=== PATIENT | male | born 1990 | race Caucasian/White ===

== ENCOUNTER 2020-03-07 03:10 | Emergency (ER) | payer SELFPAY ==
[2020-03-07 03:12] VITALS: BP 112/70; PULSE 72; RESP 16; TEMP 36.3; O2SAT 97; BMI 26.6
--- NOTE | 2020-03-07 04:17 | ED.EAR ---
HPI - Ear Problem General Chief complaint: Ear Problems Stated complaint: ear pain Time Seen by Provider: 03/07/20 04:16 Source: patient Mode of arrival: ambulatory Limitations: no limitations History of Present Illness HPI Narrative: 29-year-old male who presents to the emergency department for evaluation of right ear pain. Patient states that he has had right ear pain for 1 week. He states the pain is a constant, pounding sensation which is moderate to severe in intensity. The pain does wax and wane. The patient denies any change in his hearing. He denied fever, chills, rhinorrhea, sore throat, cough, chest pain, shortness of breaths. Related Data Allergies Allergy/AdvReac Type Severity Reaction Status Date / Time No Known Allergies Allergy Verified 03/07/20 03:15 Review of Systems Review of Systems: Yes all other systems are reviewed and are negative Constitutional: Constitutional: Reports as per HPI Eyes: Eyes: Reports as per HPI ENT: Reports as per HPI Cardiovascular: Cardiovascular: Reports as per HPI Respiratory: Respiratory: Reports as per HPI Gastrointestinal: Gastrointestinal: Reports as per HPI Genitourinary: Genitourinary: Reports as per HPI Musculoskeletal: Musculoskeletal: Reports as per HPI Integumentary/Breasts: Skin/Breast: Reports as per HPI Neurologic: Reports as per HPI and Reports Abnormal speech present Psychiatric: Psychiatric: Reports as per HPI Allergic/Immunologic: Allergic/Immunologic: Reports as per HPI PMFSH Past Medical History [facility] Narrative: The patient denies tobacco alcohol use. He does smoke marijuana daily. Medical History No known health problems Social History Social History Advance Directives: No Physical Exam Vital Signs: Vital Signs: Last Vital Signs Temp 97.4 F 03/07/20 03:12 Pulse 72 03/07/20 03:12 Resp 16 03/07/20 03:12 BP 112/70 03/07/20 03:12 Pulse Ox 97 03/07/20 03:12 Body Mass Index 26.6 Const: General: cooperative, healthy appearing and no acute distress Orientation/consciousness: oriented to person and oriented to place HENMT: Head: Yes normal to inspection and Yes normocephalic Ears: hearing grossly normal bilaterally, external ears normal and TM's normal bilaterally General nose exam: Normal external nose present Face and sinus: Yes normal facial exam Mouth: Normal oral and palatal mucosa present Throat: Yes posterior oropharynx normal Eyes: General: appearance normal, both eyes and all related structures Visual Herrera: normal visual herrera by confrontation Periorbital: periorbital findings normal Eyelids: Yes eyelids normal Conjunctivae: conjunctivae normal Sclerae: sclerae normal Neck: Neck: Yes normal visual inspection, Yes full ROM and Yes no lymphadenopathy Chest: Chest palpation & inspection: normal inspection of the chest Resp: Effort & Inspection: normal respiratory effort Cardio: Rate: regular rate Rhythm: regular rhythm Heart sounds: S1 normal heart sound present and S2 normal heart sound present GI: Palpation (GI): Soft to palpation and nontender Auscultation: normal bowel sounds : General: Yes no CVA tenderness Back/Spine/Pelvis: Back: no CVA tenderness Skin: General skin exam: no rashes or lesions noted Neuro: General: oriented to person and oriented to place Speech: Abnormal speech present Extrem: General: Yes normal to inspection Psych: Appearance: grossly normal Course Course Course Narrative: 29-year-old male who presents emergency department for evaluation of right ear pain x1 week. Physical examination revealed no significant findings to explain the patient's ear pain. I did discuss the possibility of dental pain causing the ear pain, TMJ or an acute viral illness. The patient was advised to take Tylenol and ibuprofen for pain. The patient was discharged to home with parents instructions. He is advised to follow up with his doctor in 2 days and return to the emergency department if his symptoms get worse or if he develops any new symptoms that are concerning to him. Discharge Plan Discharge Clinical Impression: Ear pain, right Patient Disposition: Home, Self-Care Instructions: Earache (ED) Additional Instructions: Your right ear looks normal at this time which is encouraging. Sometimes ear pain can be due to tooth problems. If if you have any problems with her teeth and you should follow-up with her dentist. Take ibuprofen 200 mg pills, 3 pills every 6 hours as needed for pain. Take extra-strength Tylenol 500 mg pills, 2 pills every 4-6 hours as needed for pain. Please return to the emergency department if you develop a rash on the side of your head, it had decreased hearing, or if your symptoms get worse in any way. Follow-up with your doctor and 2-3 days for re-evaluation. Interventions: ED Discharge Assessment Last Done: 03/07/20 04:35 Discharge Date/Time: 03/07/20 04:38
== END 2020-03-07 04:38 | disposition home or self-care (01) ==
PROVIDERS: Emergency Provider Emergency Medicine Emergency Medical Services
DX: H92.01 Otalgia, right ear (principal)
CPT/HCPCS: 99283